=== PATIENT | male | born 1985 | race Caucasian/White ===

== ENCOUNTER → 2016-06-01 | Outpatient (CLI) | payer OTHER ==
--- NOTE | 2016-06-01 20:02 | MR ---
MRI of the Brain (Without Contrast) Clinical Indication: Paresthesias of the skin in a 30-year-old male; no previous studies are availabl e for comparison.. Technique: T1-weighted images were acquired axially and sagittally from the foramen magnum to the ve rtex. Axial FLAIR, susceptibility-weighted, fast T2-weighted, and diffusion-weighted axial images we re obtained without contrast. Findings: The ventricles, cisterns, and sulci are normal without atrophy, hydrocephalus, midline bharath ft, herniation, or epidural/subdural hematomas. No intracranial hemorrhage or masses are identified. Diffusion-weighted sequence demonstrates no acute infarct. The craniovertebral junction is normal. Ce rebellar tonsils are in normal position. Pituitary gland is normal . The cerebellopontine angles are normal. Normal signal flow-void in the superior sagittal sinus, basilar artery, and bilateral interna l carotid arteries indicating patency. Paranasal sinuses and mastoid air cells are clear. Impression: Normal MRI of the brain without contrast.
== END ==
LOC: FIMAGING 18:49
PROVIDERS: ATTEND Psychiatry & Neurology Neurology
DX: R20.2 Paresthesia of skin (principal)

== ENCOUNTER → 2016-06-14 | Outpatient (CLI) | payer OTHER ==
--- NOTE | 2016-06-14 21:31 | CPEEG ---
[f rep st] ELECTROENCEPHALOGRAM DATE OF STUDY: 06/14/2016 INTERPRETATION: This prolonged video EEG recording monitoring session is normal. There were no potentially epileptogenic abnormalities present in the awake or sleep study. During the monitoring session, the patient did not have any clinical events. REPORT: This prolonged video-EEG monitoring session contains 9 Hz alpha to the posterior head regions. The background activity was normal and symmetric. There was no abnormal activation at rest, during hyperventilation, or photic stimulation. The patient became drowsy and fell into sustained sleep during the study. There was no abnormal activation during drowsiness, sleep, or during times of arousal. During the video EEG monitoring session, the patient did not have any clinical events. /[id number]/MODL MTDD
== END ==
LOC: FCPNEURO 09:00
PROVIDERS: ATTEND Psychiatry & Neurology Neurology
DX: R20.2 Paresthesia of skin (principal)

== ENCOUNTER 2016-12-19 15:57 | Inpatient (IN) | payer OTHER ==
[2016-12-19] MEDS ORDERED: NS 1,000 ML IV ONE (17:01)
--- NOTE | 2016-12-19 17:06 | EDPHY ---
H & P Smoking Status: Former smoker Time Seen by Provider: 12/19/16 16:41 HPI/ROS: CHIEF COMPLAINT: Feeling dehydrated, anxious HISTORY OF PRESENT ILLNESS: 31-year-old male presents to the emergency department feeling extremely anxious and dehydrated. The patient has a history of anxiety as well as PTSD. 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 He has a history of substance abuse and was prescribed Ativan for his anxiety. He used 30 1 mg tablets of Ativan within about 4 days. He is feeling extremely anxious. He is having hard time eating. He does not feel that he has a normal appetite. He does not abuse alcohol. He denies auditory or visual hallucinations. He denies chest pain or difficulty breathing. Denies abdominal pain. REVIEW OF SYSTEMS: Constitutional: No fever, no chills. Eyes: No double or blurry vision. ENT: No sore throat. Respiratory: No cough, no shortness of breath. Cardiac: No chest pain. Gastrointestinal: No abdominal pain, vomiting or diarrhea. Genitourinary: No dysuria. Musculoskeletal: No neck or back pain. Skin: No rashes. Neurological: No headache. (Kirstie Lawrence M) Past Medical/Surgical History: anxiety, adhd, substance abuse, bipolar, PTSD (Melinda,Kirstie M) Social History: Single (Melinda,Kirstie M) Physical Exam: General Appearance: Alert. Anxious. Pressured speech. Eyes: Pupils equal and round. Extraocular motions are all intact. ENT: Mouth: Mucous membranes moist. Respiratory: No wheezing, rhonchi, or rales, lungs are clear to auscultation. Cardiovascular: Regular rate and rhythm. Gastrointestinal: Abdomen is soft and nontender, no masses, no rebound or guarding, bowel sounds normal. Neurological: Alert and oriented x 3, cranial nerves II through XII grossly intact Skin: Warm and dry, no rashes. Musculoskeletal: Nontender to palpate along the cervical, thoracic or lumbar spine. Neck is supple. Extremities: Full range of motion and no peripheral edema. Psychiatric: Patient is oriented X 3, there is no agitation. (Melinda,Kirstie M) Constitutional: Initial Vital Signs Temperature (C) 36.7 C 12/19/16 16:03 Heart Rate 82 12/19/16 16:03 Respiratory Rate 20 12/19/16 16:03 Blood Pressure 144/93 H 12/19/16 16:03 O2 Sat (%) 94 12/19/16 16:03 O2 Delivery Mode Room Air Allergies/Adverse Reactions: No Known Allergies Allergy (Verified 12/19/16 15:59) Home Medications: Medication Instructions Recorded Dextroamphetamine/Amphetamine 20 mg PO DAILY 12/19/16 [Adderall Xr 20 mg Capsule] Metaxalone [Skelaxin 800 mg (*)] 800 mg PO BID PRN 12/19/16 Multivitamins [Multivitamin (*)] 1 each PO DAILY 12/19/16 Propranolol HCl [Inderal 10mg (*)] 10 - 20 mg PO QID PRN 12/19/16 QUEtiapine FUMARATE [Seroquel 25 25 mg PO HS 12/19/16 mg (*)] Amphet Asp and D/Amphet [Adderall 10 mg PO BID 12/20/16 10 MG (*)] Herbals/Supplements -Info Only 1 ea PO DAILY 12/20/16 Levalbuterol Inhaler [Xopenex Hfa 2 puffs IH Q6HRS 12/20/16 Inhaler (*)] [place]-3 Fatty Acids [Fish Oil 1000 1,000 mg PO DAILY 12/20/16 mg (*)] Medical Decision Making ED Course/Re-evaluation: The patient was placed on a detainer. The patient is not suicidal or homicidal. However, the patient is noncompliant with medication and has not slept in several days and has not eaten in several days. The patient initial salicylate level was 2.5. This was repeated 2 hours later was less than 1. Remainder laboratory studies are within normal limits. The patient was evaluated by mental health. The patient is extremely manic. He will be admitted to mental health floor. The patient was given Zyprexa 10 mg Zydis in the emergency department to help him relax and rest. The patient was also requesting his propranolol. He typically takes 10-20 mg four times daily. Was given 20 mg p.o. in the emergency department. Patient refused this Zyprexa. He does take Seroquel at bedtime. He was given 50 mg of Seroquel which he typically takes. He was also given 60 mg of propranolol sustained release. Patient was placed on M1 hold. (Kirstie Lawrence) 0647AM: Patient did require 1 mg p.o. Ativan here. Otherwise no acute events overnight. Patient signed over to Dr. Jim at 7AM. (Rodrick Serrano) I assumed care of this patient from Dr. Serrano at 7:00 a.m.. Arrangements are made for him to be transferred to [address] [place] [address] for inpatient psychiatric hospitalization. Transport arrived at 8:45 a.m.. I signed the EMTALA form. ( Rosa Isela Jim) Differential Diagnosis: Altered mental status including but not limited to hypoglycemia, infectious process, electrolyte abnormality, head injury and intoxicants. (Kirstie Lawrence) Care Turn Over: Care will be turned over to Dr. Rodrick Serrano for disposition and plan. (Kirstie Lawrence) - Data Points Laboratory Results: Laboratory Results 12/19/16 17:20 12/19/16 17:20 12/19/16 20:37 Salicylates < 1.0 mg/dL L mg/dL (2.0-20.0) Medications Given: Discontinued Medications Sodium Chloride (Ns) 1,000 mls @ 0 mls/hr IV ONCE ONE PRN Reason: Wide Open Stop: 12/19/16 17:02 Last Admin: 12/19/16 17:35 Dose: 1,000 mls Olanzapine (Zyprexa Zydis) 10 mg PO EDNOW ONE Stop: 12/19/16 23:10 Last Admin: 12/20/16 00:10 Dose: Not Given Olanzapine (Zyprexa Zydis) 10 mg PO EDNOW ONE Stop: 12/20/16 02:40 Last Admin: 12/20/16 02:40 Dose: 10 mg Propranolol HCl (Inderal) 20 mg PO EDNOW ONE Stop: 12/19/16 23:32 Last Admin: 12/20/16 03:11 Dose: Not Given Propranolol HCl (Inderal La) 60 mg PO EDNOW ONE Stop: 12/19/16 23:50 Last Admin: 12/19/16 23:56 Dose: 60 mg Departure - Departure Disposition: [facility] IP Clinical Impression: Bipolar 1 disorder Condition: Good Referrals: UNKNOWN,PCP [Other] - As per Instructions
[2016-12-19 17:46] LABS: % IMMATURE GRANULYOCYTES 0.3 % (0.0-1.1); ABSOLUTE IMMATURE GRANULOCYTES 0.03 10^3/uL (0.00-0.10); ADD DIFF? NO; ADD MORPH? NO; ADD SCAN? NO; ATYPICAL LYMPHOCYTE FLAG 0 (0-99); FRAGMENT RBC FLAG 0 (0-99); HEMATOCRIT 46.2 % (40.0-51.0); HEMOGLOBIN 15.2 g/dL (13.7-17.5); LEFT SHIFT FLG 0 (0-99); LIPEMIA HEMOLYSIS FLAG 80 (0-99); MEAN CELL HEMOGLOBIN 28.6 pg (27.9-34.1); MEAN CELL HEMOGLOBIN CONCENTR. 32.9 g/dL (32.4-36.7); MEAN CELL VOLUME 86.8 fL (81.5-99.8); MEAN PLATELET VOLUME 10.5 fL (8.7-11.7); PLATELET CLUMPS FLAG 0 (0-99); PLATELET COUNT 280 10^3/uL (150-400); RED BLOOD CELL COUNT 5.32 10^6/uL (4.40-6.38); RED CELL DISTRIBUTION WIDTH 12.6 % (11.5-15.2)
[2016-12-19 17:59] LABS: ALANINE AMINOTRANSFERASE 42 IU/L (21-72); ALBUMIN 4.6 g/dL (3.5-5.0); ALKALINE PHOSPHATASE 75 IU/L (38-126); ANION GAP 12 mEq/L (8-16); ASPARTATE AMINOTRANSFERASE 29 IU/L (17-59); BILIRUBIN,TOTAL 0.6 mg/dL (0.1-1.4); BILIRUBIN-CONJUGATED 0.4 mg/dL (0.0-0.5); BILIRUBIN-UNCONJUGATED 0.2 mg/dL (0.0-1.1); CALCIUM 9.9 mg/dL (8.5-10.4); CARBON DIOXIDE 23 mEq/l (22-31); CHLORIDE 103 mEq/L (97-110); ETHANOL SERUM < 10 mg/dL (0-10); GLOMERULAR FILTRATION RATE > 60; GLUCOSE 110 mg/dL (70-100); POTASSIUM 4.3 mEq/L (3.5-5.2); SALICYLATE 2.5 mg/dL (2.0-20.0); SODIUM 138 mEq/L (134-144); TOTAL PROTEIN 7.2 g/dL (6.3-8.2)
[2016-12-19 20:58] LABS: SALICYLATE < 1.0 mg/dL (2.0-20.0)
[2016-12-19] MEDS ORDERED: OLANZapine DISINTEGR 10 MG TAB PO ONE (23:09)
[2016-12-19] MEDS ORDERED: PROPRANOLOL HCL 20 MG TAB PO ONE (23:31)
[2016-12-19] MEDS ORDERED: PROPRANOLOL SR 60 MG CAP PO ONE (23:49)
[2016-12-20] MEDS ORDERED: LORazepam 1 MG TAB PO ONE (02:31)
[2016-12-20] MEDS ORDERED: OLANZapine DISINTEGR 10 MG TAB ONE (02:37)
[2016-12-20] MEDS ORDERED: OLANZapine DISINTEGR 10 MG TAB PO ONE (02:39)
[2016-12-20 09:53] VITALS: BP 144/98; PULSE 79; RESP 18; TEMP 98.1; O2SAT 97
[2016-12-20] MEDS ORDERED: NICOTINE POLACRILEX 2 MG GUM B PRN (10:12)
[2016-12-20] MEDS ORDERED: OLANZapine DISINTEGR 10 MG TAB PO PRN (10:12)
[2016-12-20] MEDS ORDERED: MAG HYDROX/AL HYDROX/SIMETH 30 ML UDCUP PO PRN (10:12)
[2016-12-20] MEDS ORDERED: ACETAMINOPHEN 325 MG TAB PO PRN (10:12)
[2016-12-20] MEDS ORDERED: MAGNESIUM HYDROXIDE 30 ML UDCUP PO PRN (10:12)
[2016-12-20] MEDS ORDERED: MULTIVITAMINS 1 EACH TAB PO SCH (10:15)
[2016-12-20] MEDS ORDERED: OMEGA-3 FATTY ACIDS 1,000 MG CAP PO SCH (10:15)
[2016-12-20] MEDS ORDERED: LEVALBUTEROL IH SCH (12:00)
[2016-12-20] MEDS ORDERED: LEVALBUTEROL INHALER 200 PUFFS/15 GM MDI IH SCH (12:00)
[2016-12-20] MEDS ORDERED: LORazepam 1 MG TAB PO PRN (13:56)
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
--- NOTE | 2016-12-20 16:44 | BCON ---
[f rep st] BEHAVIORAL HEALTH CONSULTATION INTERNAL MEDICINE CONSULTATION DATE OF CONSULTATION: 12/20/2016 REFERRING PHYSICIAN: Neil Garcia MD REASON FOR REFERRAL: Medical clearance for inpatient behavioral health stay. HISTORY OF PRESENT ILLNESS: The patient came to the emergency department feeling anxious and dehydrated. He reported that his "salt balance and electrolytes are off." Per the emergency department note, he reported that he had used 31 mg tablets of lorazepam in about 4 days and on interview today, he reports that it was 23 tablets of lorazepam. He was evaluated by the mental health team and admitted for further psychiatric care. He is currently without any acute complaints. In particular, he denies any symptoms of benzodiazepine withdrawal. He says he is familiar with it, he has used large amounts of benzodiazepines since he was a teenager, and is not currently suffering from a withdrawal syndrome. PAST MEDICAL HISTORY: 1. Bipolar disorder. 2. Obesity. 3. PTSD. 4. Asthma. PAST SURGICAL HISTORY: He reports he has had a gastric banding procedure and then he had it reversed approximately 2 years ago. He also reports a left shoulder repair of a labral tear. MEDICATIONS: Prior to admission: 1. Propranolol 10-20 mg p.o. q.i.d. p.r.n. 2. Levalbuterol 2 puffs q.6 hours p.r.n. 3. [place]-3 fatty acids 1000 mg p.o. daily. 4. Adderall 20 mg daily, and 10 mg twice daily. 5. Quetiapine 25 mg at bedtime. 6. Multivitamin daily. 7. Metaxalone 800 mg b.i.d. p.r.n. ALLERGIES: There are no known drug allergies, though he reports a gluten intolerance with symptoms of mood issues; he reports he gets a "burning anger." SOCIAL HISTORY: He lives alone. He is trained in health information technology ; however, he is unemployed at present. He is a nonsmoker, and he denies use of alcohol or other substances of abuse. FAMILY HISTORY: Noncontributory. REVIEW OF SYSTEMS: He denies symptoms consistent with benzodiazepine withdrawal including no shakes and no sweats. He denies symptoms consistent with uncontrolled hypertension including no headaches. Other than that, a 10- point review of systems is negative, though he does report some urinary hesitancy when he is anxious. PHYSICAL EXAM: VITAL SIGNS: Blood pressure is 144/98, heart rate 79, respiratory rate 18, oxygen saturation is 97% on room air. Temperature is 36.7 degrees centigrade. His weight is 99.8 kg for a body mass index of 29.8. GENERAL: This is an obese appearing man, appears his chronologic age, cooperative, and in no acute distress. HEENT: Extraocular movements are intact. Pupils are equal, round, reactive to light. Mucous membranes are moist. Dentition is in good condition. NECK: Supple. HEART: Regular rate and rhythm with no murmurs, rubs, or gallops. LUNGS: Clear to auscultation bilaterally. ABDOMEN: Soft, nontender, nondistended with normoactive bowel sounds. EXTREMITIES: There is no cyanosis, clubbing, or edema. NEUROLOGIC: He is alert and oriented x3. He has pressured speech and some bizarre thoughts. Cranial nerves 2-12 are grossly intact. There is no focal weakness. Sensation is intact to light touch. Gait is within normal limits. LABORATORY STUDIES: Drawn in the emergency department: CBC revealed a slightly high white blood cell count at 10.6, there was no left shift. There was an elevation of eosinophils at 0.59, with the upper limit of normal being 0.4. Serum chemistry revealed a slightly high glucose but this was likely not fasting. Otherwise, TSH, renal function and liver functions were within normal limits. Serum toxicology was negative for acetaminophen or ethyl alcohol. Salicylates were nontoxic at 2.5, and on a subsequent draw 3 hours later, were undetectable. Urine toxicology was non-negative for amphetamines and marijuana. ASSESSMENT/RECOMMENDATIONS: 1. Mental health issues, pending further evaluation and management per Psychiatry and the mental health team. 2. Elevated blood pressure. Advise continued monitoring. If blood pressure is consistently elevated, he would benefit from a prescription of an antihypertensive. Beta blockers are not first-line for treating hypertension, would advise an EDIL inhibitor, calcium channel yaya, or diuretic. Continue low-dose beta-yaya for anxiety or other mental health issues. 3. Overweight status. Consider caution regarding medications which could exacerbate weight gain. 4. Weight loss, volitional, encouraged. Continue exercise and dietary strategies. I see no medical contraindications to the patient's continued stay on the inpatient behavioral health unit or to any psychiatric medications or procedures. Thank you very much for including me in the care of this patient. Please do not hesitate to contact me or the hospitalist service should there be need for further medical evaluation. /[id number]/MODL MTDD
--- NOTE | 2016-12-20 18:39 | BDS ---
[f rep st] BEHAVIORAL HEALTH DISCHARGE SUMMARY REASON FOR ADMISSION: Patient is a 31-year-old, male who was admitted from the emergency department after having presented in what appeared to be a manic state. He was evaluated today on [facility] inpatient unit by myself, and felt not to meet criteria for further hospitalization. A full desc ription of these events and my evaluation can be found in his admission history of the same date. ADMISSION DIAGNOSES: 1. Attention deficit hyperactivity disorder, mixed type. 2. Posttraumatic stress disorder, family conflicts. CONDITION AT DISCHARGE: Stable. He was demonstrating no evidence of veronika and having no thoughts o f suicide, homicide or violence. DISCHARGE MEDICATIONS: Seroquel 25 mg p.o. at bedtime, Adderall 10 mg b.i.d. and Adderall XR 20 mg daily, [place]-3 fatty acids 1000 mg daily, propranolol 10-20 mg q.i.d. as needed, and levalbuterol in haler q.6 hours as needed. DISPOSITION: The patient left the hospital of his own accord. FOLLOWUP: With his outpatient therapist, Junior Wong, as scheduled tomorrow at 2:00, and with Alfonso Aguirre, his outpatient prescriber next Monday, the ; he will call her to schedule this. LEGAL COURSE: The patient was placed on an M1 hold which was dropped at time of his discharge. /[id number]/MODL
== END 2016-12-20 16:20 | disposition home or self-care (01) | DRG 885 ==
LOC: BBEH 12-20 09:05
PROVIDERS: ADMIT Psychiatry & Neurology Psychiatry; ATTEND Psychiatry & Neurology Psychiatry
DX: F31.9 Bipolar disorder, unspecified (principal); F90.9 Attention-deficit hyperactivity disorder, unspecified type; F43.10 Post-traumatic stress disorder, unspecified; F12.90 Cannabis use, unspecified, uncomplicated; F13.90 Sedative, hypnotic, or anxiolytic use, unspecified, uncomplicated
CPT/HCPCS: 80305; G0480